=== PATIENT | male | born 1980 | race Caucasian/White ===

== ENCOUNTER 2016-08-07 06:01 | Day surgery (SDC) | payer OTHER ==
[~2016-08-07] VITALS: Ht 180.3 cm; Wt 120.2 kg
--- NOTE | ~2016-08-07 | OP ---
PATIENT NAME: IAN HANCOCK MEDICAL RECORD: [id number] :78 LOCATION:D.OPS ADMISSION DATE: SURGEON: ANJUM PULIDO MD DATE OF OPERATION: 08/07/2016 PREOPERATIVE DIAGNOSES: 1. Intractably symptomatic external hemorrhoids. 2. Clinically, he has an anal fissure. POSTOPERATIVE DIAGNOSES: 1. Intractably symptomatic external hemorrhoids. 2. Acute large posterior lying anal fissure. PROCEDURE: 1. Procedure for prolapse and hemorrhoids. 2. Lateral internal sphincterotomy. SURGEON: Anjum Pulido MD [employer]: None. BLOOD LOSS: Minimal. ANESTHESIA: General. COMPLICATIONS: None. OPERATIVE COURSE: The patient was conveyed to the operating room electively on 08/07/2016. General anesthesia was induced by anesthesia staff. The patient was placed in the lithotomy position. The anus and perianal areas were sterilely prepped and draped. I dilated the anus laterally to 3 fingers. A PPH dilator retractor was placed. The retractor was sewn in place with circumferential 2-0 silks to the surrounding anoderm. A mucosal pursestring suture of 2-0 Prolene was applied 1 cm cephalad to the clear retractor. The PPH stapling device was inserted with the anvil cephalad to the pursestring suture, which was then tightened and tied. The stapling device was engaged. It was held in place for 2 minutes and then fired. It was then removed under direct vision. There was an entire donut of lower rectal and internal hemorrhoidal tissue within the stapling device. Bleeding along the anastomotic mucosa staple line was controlled with [id number] 3-0 Vicryls. The clear retractor was removed. I examined the hemorrhoidal tissue as well as the anus. I noted on the beginning of the operation this large acute appearing anal fissure in the midline posteriorly. Submucosal flaps were created sharply. This was a fissure-orrhaphy that was completed. After the submucosal flaps were created, I closed the fissure with multiple interrupted horizontal mattress 3-0 Vicryl sutures. At the 3 o'clock position, an incision was accomplished in the anal mucosa. I was able to palpate the external sphincters as well as the internal sphincter. I divided about half of the internal sphincter with the scalpel. The anal mucosa was approximated with a running locking 3-0 Vicryl suture. I then reinforced the suture line with multiple interrupted horizontal mattress 3-0 OPERATIVE REPORT [id number] IAN HANCOCK. Gelfoam was applied within the anus and lower rectum. A combination of sterile preparation and Marcaine was used to infiltrate the perianal tissues. A topical anesthetic cream was applied to the external hemorrhoids. The patient was then extubated and conveyed to post-anesthesia care unit where he was in stable condition. He will be dismissed home on hydrocodone as well as Valium and Colace. I will see him in the office in 2-3 weeks. TRANSINT:[id number] Voice Confirmation ID: [id number] DOCUMENT ID: [id number] ANJUM PULIDO MD CC: EMILY KENNEDY MD [id number] DICTATION DATE: 08/07/16 1035 STITCHDOWNS TOE FORMER: 08/07/16 1720 [facility] 08/07/16 [facility] [address] [place] [address]
--- NOTE | ~2016-08-07 | HP ---
PATIENT: IAN HANCOCK MEDICAL RECORD: [id number] ACCOUNT: [id number] LOCATION:[facility] : 78 ADMISSION DATE: 08/07/16 HISTORY AND PHYSICAL EXAMINATION CHIEF COMPLAINT: Pain. HISTORY OF PRESENT ILLNESS: The patient has knife-like anal pain. He states that it feels like shards of glass are coming out of his anus when he defecates. He has had internal hemorrhoidal bleeding with hematochezia in the past. He also has intractably symptomatic external hemorrhoids, which have been bothering him for years. This new knife-like anal pain has been present just within the last few weeks; however. It is intractable. Defecation aggravates. Suppositories alleviate to some degree; however, does hurt with suppositories up into his anal canal. I believe that he likely has symptomatic external hemorrhoids as well as an anal fissure. The risks, possible complications and alternatives to procedure for prolapse and hemorrhoids as well as possible hemorrhoidectomy, possible fistulotomy, possible fissurectomy, possible lateral internal sphincterotomy were discussed with the patient. He elects to proceed. HOME MEDICINES: Lodine, hydrochlorothiazide, and Prinivil. ALLERGIES: No known drug allergies. SOCIAL HISTORY: Nonsmoker. He does dip some tobacco. PAST MEDICAL AND SURGICAL HISTORY: Hypertension, history of colon resection as a child due to trauma. REVIEW OF SYSTEMS: Negative for CVA or seizures. Negative for diabetes or thyroid problems. Negative for renal disease or hepatitis. PHYSICAL EXAMINATION: GENERAL: The patient does not appear acutely ill. He does not appear chronically ill. VITAL SIGNS: Reviewed. HEAD: External ears appear normal. EYES: Extraocular movements are intact. NECK: Trachea is midline. CHEST: No intercostal retractions. PULMONARY: Nonlabored, no stridor. ABDOMEN: No peritonitis with movement. EXTREMITIES: No peripheral cyanosis. INTEGUMENT: No rash. IMPRESSION: 1. Probable anal fissure. 2. Intractably symptomatic external hemorrhoids. PLAN: As described above. TRANSINT:[id number] Voice Confirmation ID: [id number] DOCUMENT ID: [id number] HISTORY AND PHYSICAL [id number] IAN HANCOCK DOUG PULIDO MD CC: EMILY KENNEDY MD [id number] DICTATION DATE: 08/07/16 1013 INSTRUCTIONAL MEDIA SERVICES TECHNICIAN: 08/07/16 1304 [facility] 0 [facility], [facility]
[2016-08-07] MEDS ORDERED: LODINE400 MG PO (07:07)
[2016-08-07] MEDS ORDERED: PRINIVIL20 MG PO (07:07)
[2016-08-07] MEDS ORDERED: HYDROCHLOROTH12.5 M1 PO (07:08)
[2016-08-07 07:14] VITALS: BP 125/87; Ht 180.3 cm; Wt 120.2 kg
[2016-08-07 08:30] LABS: HEMATOCRIT 47.3 % (42.0-54.0); HEMOGLOBIN 16.6 g/dL (13.5-17.5); MCH 30.3 pg (26.0-34.0); MCHC 35.1 g/dL (31.0-37.0); MCV 86.3 fL (80.0-100.0); MEAN PLATELET VOLUME 9.7 fL (7.4-10.4); RBC 5.48 10x6/uL (4.20-6.10); WBC 8.2 10x3/uL (4.8-10.8)
[2016-08-07 08:52] LABS: CALCIUM 9.1 mg/dL (8.5-10.1); CARBON DIOXIDE 26.3 mmol/L (21.0-32.0); CREATININE - SERUM 1.2 mg/dL (0.6-1.3); POTASSIUM - SERUM 4.3 mmol/L (3.5-5.1)
--- NOTE | 2016-08-07 10:31 | NUR ---
1025-RECEIVED PT FROM PACU AWAKE AND ALERT. VSS PT C/O OF PAIN 8/10 NEW ORDERS RECEIVED FOR MEDICATIONS. VSS POX 99% AT BEDSIDE AND CALL LIGHT IN REACH
--- NOTE | 2016-08-07 15:07 | NUR ---
1150--PT VOIDS WITHOUT DIFFICULTY, IV DC'D. CHAZ METZGER 1200--DISCHARGE INSTRUCTIONS GIVEN, PT VERBALIZES UNDERSTANDING. CHAZ METZGER
== END 2016-08-07 12:00 | disposition home or self-care (01) ==
LOC: D.OPS 06:01
PROVIDERS: Anesthesiology
DX: K64.4 Residual hemorrhoidal skin tags (principal); K60.2 Anal fissure, unspecified; I10 Essential (primary) hypertension; Z79.899 Other long term (current) drug therapy; Z72.0 Tobacco use

== ENCOUNTER → 2019-05-19 16:50 | Outpatient (CLI) | payer OTHER ==
[2016-08-07 07:14] VITALS: BMI 37.0
[~2019-05-19 16:50] MED LIST: HYDROCHLOROTH12.5 M1 PO; LODINE400 MG PO; PRINIVIL20 MG PO
== END | disposition home or self-care (01) ==
LOC: D.RAD 16:50
PROVIDERS: ATTEND Nurse Practitioner Family
DX: M79.632 Pain in left forearm (principal); M79.89 Other specified soft tissue disorders

== ENCOUNTER → 2019-11-16 07:24 | Outpatient (CLI) | payer OTHER ==
[2016-08-07 07:14] VITALS: BMI 37.0
== END | disposition home or self-care (01) ==
LOC: D.RAD 07:24 → D.MRI 09:00
PROVIDERS: ATTEND Orthopaedic Surgery
DX: S43.432A Superior glenoid labrum lesion of left shoulder, initial encounter (principal); X58.XXXA Exposure to other specified factors, initial encounter